=== PATIENT | female | born 1990 | race African-American/Black ===

== ENCOUNTER 2019-04-06 19:35 | Emergency (ER) | payer MEDICAID ==
[~2019-04-06] VITALS: Ht 162.6 cm; Wt 78.0 kg
[2019-04-06] MEDS ORDERED: KETOROLAC 30MG/ML VIAL IM STA (21:33)
[2019-04-06] MEDS ORDERED: ACETAMINOPHEN 325MG TABLET PO ONE (21:45)
[2019-04-06 23:48] VITALS: BP 123/68
== END 2019-04-06 23:50 | disposition home or self-care (01) ==
LOC: ER 19:35
DX: S40.011A Contusion of right shoulder, initial encounter (principal); S46.911A Strain of unspecified muscle, fascia and tendon at shoulder and upper arm level, right arm, initial encounter; V49.40XA Driver injured in collision with unspecified motor vehicles in traffic accident, initial encounter; Y93.89 Activity, other specified; Y92.410 Unspecified street and highway as the place of occurrence of the external cause; F17.210 Nicotine dependence, cigarettes, uncomplicated; Z71.6 Tobacco abuse counseling; F12.90 Cannabis use, unspecified, uncomplicated
CPT/HCPCS: 73030; 96372; 99283; 99406; J1885

== ENCOUNTER 2023-02-20 16:43 | Emergency (ER) | payer MEDICAID ==
[~2023-02-20] VITALS: Ht 170.2 cm; Wt 91.0 kg
[2023-02-20 17:14] VITALS: BP 129/77; RESP 18; O2SAT 99
[2023-02-20 17:15] VITALS: PULSE 105
[2023-02-20 18:15] VITALS: TEMP 98.5
[2023-02-20] MEDS ORDERED: ACETAMINOPHEN 325MG TABLET PO ONE (18:15)
[2023-02-20] MEDS ORDERED: TOPUD MT (20:52)
[2023-02-20] MEDS ORDERED: IBUP-1525 MT (20:52)
== END 2023-02-20 21:26 | disposition home or self-care (01) ==
LOC: ER 16:43
DX: S80.01XA Contusion of right knee, initial encounter (principal); Z88.1 Allergy status to other antibiotic agents; F12.10 Cannabis abuse, uncomplicated; Z98.890 Other specified postprocedural states; W18.30XA Fall on same level, unspecified, initial encounter; Y93.89 Activity, other specified; Y92.89 Other specified places as the place of occurrence of the external cause; Y99.8 Other external cause status
CPT/HCPCS: 73562; 73590; 99284